=== PATIENT | male | born 1990 | race Hispanic/Latino ===

== ENCOUNTER 2019-03-10 02:00 | Emergency (ER) | payer SELFPAY ==
[2019-03-10 02:45] VITALS: BP 132/69
--- NOTE | 2019-03-13 16:55 | Emergency Department Report ---
Blank Doc - Documentation Documentation: Patient was found to have left the department before C being seen by provided
== END 2019-03-10 03:29 | disposition left against medical advice (07) ==
LOC: ED 02:00
DX: F10.10 Alcohol abuse, uncomplicated (principal); Z53.21 Procedure and treatment not carried out due to patient leaving prior to being seen by health care provider